=== PATIENT | female | born 1970 | race American Indian/Alaskan Native ===

== ENCOUNTER 2017-09-27 21:48 | Emergency (ER) | payer OTHER ==
[2017-09-27 21:56] VITALS: BP 123/75
[2017-09-27 23:23] LABS: Basophils % (Auto) 1.1 % (0.0-1.8); Eosinophils % (Auto) 0.9 % (0.0-4.3); Hematocrit 38.1 % (30.3-42.9); Hemoglobin 11.9 gm/dl (10.1-14.3); Mean Corpuscular HGB Conc 31 % (30-34); Mean Corpuscular Volume 80 fl (79-97); Platelet Count 357 K/mm3 (140-440); Red Blood Count 4.78 M/mm3 (3.65-5.03); Red Cell Distribution Width 16.8 % (13.2-15.2); White Blood Count 8.7 K/mm3 (4.5-11.0)
[2017-09-27 23:40] LABS: Mean Corpuscular Hemoglobin 25 pg (28-32)
[2017-09-28 00:04] LABS: Alanine Aminotransferase 9 units/L (7-56); Albumin 4.3 g/dL (3.9-5); Albumin/Globulin Ratio 1.3 %; Alkaline Phosphatase 76 units/L (35-129); Anion Gap 17 mmol/L; BUN/Creatinine Ratio 10; Blood Urea Nitrogen 8 mg/dL (7-17); Calcium 9.1 mg/dL (8.4-10.2); Carbon Dioxide 24 mmol/L (22-30); Chloride 97.2 mmol/L (98-107); Glucose 93 mg/dL (65-100); Lipase 28 units/L (13-60); Potassium 3.5 mmol/L (3.6-5.0); Sodium 135 mmol/L (137-145); Total Protein 7.5 g/dL (6.3-8.2)
== END 2017-09-28 05:20 | disposition left against medical advice (07) ==
LOC: ED 21:48
DX: R10.9 Unspecified abdominal pain (principal); Z53.21 Procedure and treatment not carried out due to patient leaving prior to being seen by health care provider
CPT/HCPCS: 36415; 80053; 83690; 85025

== ENCOUNTER 2017-10-06 00:02 | Emergency (ER) | payer OTHER ==
[2017-10-06] MEDS ORDERED: NACL 0.9% 1000 ML 1,000 ML IV ONE (02:06)
[2017-10-06 02:49] LABS: Basophils % (Auto) 1.8 % (0.0-1.8); Eosinophils % (Auto) 0.6 % (0.0-4.3); Hematocrit 36.1 % (30.3-42.9); Hemoglobin 11.8 gm/dl (10.1-14.3); Mean Corpuscular HGB Conc 33 % (30-34); Mean Corpuscular Volume 79 fl (79-97); Platelet Count 330 K/mm3 (140-440); Red Blood Count 4.57 M/mm3 (3.65-5.03); Red Cell Distribution Width 16.7 % (13.2-15.2); White Blood Count 5.9 K/mm3 (4.5-11.0)
[2017-10-06 03:05] LABS: Alanine Aminotransferase 11 units/L (7-56); Albumin 4.1 g/dL (3.9-5); Albumin/Globulin Ratio 1.4 %; Alkaline Phosphatase 58 units/L (35-129); Anion Gap 19 mmol/L; BUN/Creatinine Ratio 7; Blood Urea Nitrogen 5 mg/dL (7-17); Calcium 8.9 mg/dL (8.4-10.2); Carbon Dioxide 24 mmol/L (22-30); Chloride 100.3 mmol/L (98-107); Glucose 96 mg/dL (65-100); Lipase 21 units/L (13-60); Potassium 3.7 mmol/L (3.6-5.0); Sodium 140 mmol/L (137-145)
[2017-10-06 03:09] LABS: Mean Corpuscular Hemoglobin 26 pg (28-32)
[2017-10-06 03:11] LABS: INR 1.01 (0.87-1.13); Partial Thromboplastin Time 30.8 Sec. (24.2-36.6)
[2017-10-06] MEDS ORDERED: ZOFRAN IV ONE (07:19)
[2017-10-06] MEDS ORDERED: PEPCID IV ONE (07:19)
[2017-10-06] MEDS ORDERED: DILAUDID IV ONE (07:19)
--- NOTE | 2017-10-06 07:20 | Emergency Department Report ---
ED General Adult HPI - General Chief complaint: Abdominal Pain Stated complaint: ABD PAIN Time Seen by Provider: 10/06/17 07:13 Source: patient, RN notes reviewed Mode of arrival: Ambulatory Limitations: No Limitations - History of Present Illness Initial comments: This is a 47-year-old female who is previously unknown to this provider. She does not have a local primary care doctor or computer forwarding system markup clerk. She reports a past medical history of ulcer, colitis, Crohn's disease, abdominal surgery for bleeding ulcer, reports this was done a few years ago. Presents to the ER with a complaint of diffuse abdominal pain, thinks that she was coughing up blood, but she thinks that vomiting blood is also a possibility. She is not certain. Abdominal pain is sharp and all over. It increases with palpation. It decreases with rest. Patient denies bright red blood per rectum. She denies urinary symptoms. She was given hydromorphone in the ER, and this also improved her symptoms. -: Gradual Location: abdomen Quality: aching Consistency: constant Improves with: medication, rest Worsens with: movement Associated Symptoms: cough, loss of appetite, nausea/vomiting, weakness. denies : confusion, chest pain - Related Data Previous Rx's Medication Instructions Recorded Last Taken Type Acetaminophen [Tylenol Arthritis] 650 mg PO Q6HR PRN #30 tablet.er 10/06/17 Unknown Rx Dicyclomine [Bentyl] 10 mg PO QID PRN #20 capsule 10/06/17 Unknown Rx Famotidine [Pepcid] 20 mg PO QDAY #30 tablet 10/06/17 Unknown Rx Ondansetron [Zofran Odt] 4 mg PO Q8HR PRN #20 tab.rapdis 10/06/17 Unknown Rx Allergies Allergy/AdvReac Type Severity Reaction Status Date / Time No Known Allergies Allergy Verified 10/06/17 07:20 ED Review of Systems ROS: Stated complaint: ABD PAIN Other details as noted in HPI Constitutional: denies: fever Eyes: denies: eye discharge ENT: denies: epistaxis Respiratory: denies: cough Cardiovascular: denies: chest pain Gastrointestinal: abdominal pain, nausea, vomiting. denies: melena, hematochezia Genitourinary: denies: urgency Musculoskeletal: arthralgia Skin: denies: lesions Neurological: weakness ED Past Medical Hx - Past Medical History Additional medical history: ulcer,colitis,chrons - Surgical History Past Surgical History?: Yes Additional Surgical History: Abdominal surgery for Bleeding Ulcer - Social History Smoking Status: Current Every Day Smoker Substance Use Type: None - Medications Home Medications: Home Medications Medication Instructions Recorded Confirmed Last Taken Type Acetaminophen [Tylenol Arthritis] 650 mg PO Q6HR PRN #30 tablet.er 10/06/17 Unknown Rx Dicyclomine [Bentyl] 10 mg PO QID PRN #20 capsule 10/06/17 Unknown Rx Famotidine [Pepcid] 20 mg PO QDAY #30 tablet 10/06/17 Unknown Rx Ondansetron [Zofran Odt] 4 mg PO Q8HR PRN #20 tab.rapdis 10/06/17 Unknown Rx ED Physical Exam - General Limitations: No Limitations General appearance: alert, in no apparent distress - Head Head exam: Present: atraumatic, normocephalic - Eye Eye exam: Present: normal appearance, EOMI. Absent: nystagmus - ENT ENT exam: Present: normal exam, normal orophraynx, mucous membranes moist, normal external ear exam - Neck Neck exam: Present: normal inspection, full ROM - Respiratory Respiratory exam: Present: normal lung sounds bilaterally. Absent: respiratory distress - Cardiovascular Cardiovascular Exam: Present: regular rate, normal rhythm, normal heart sounds. Absent: systolic murmur, diastolic murmur, rubs, gallop - GI/Abdominal GI/Abdominal exam: Present: soft, tenderness, normal bowel sounds. Absent: distended, guarding, rebound, rigid, pulsatile mass - Extremities Exam Extremities exam: Present: normal inspection, full ROM, normal capillary refill. Absent: pedal edema, joint swelling, calf tenderness - Back Exam Back exam: Present: normal inspection, full ROM. Absent: paraspinal tenderness , vertebral tenderness - Neurological Exam Neurological exam: Present: alert, CN II-XII intact, other (Extraocular movements intact. Tongue midline. No facial droop. Facial sensation intact to light touch in the V1, V2, V3 distribution bilaterally. 5 and 5 strength in 4 extremities.. Sensation is intact to light touch in 4 extremities.). Absent : motor sensory deficit - Psychiatric Psychiatric exam: Present: normal affect, normal mood - Skin Skin exam: Present: warm, dry, intact, normal color. Absent: rash ED Course Vital Signs 10/06/17 10/06/17 10/06/17 01:57 03:48 04:00 Temperature 98.1 F Pulse Rate 76 68 65 Respiratory 26 H 15 Rate Blood Pressure 128/86 117/82 Blood Pressure [Left] O2 Sat by Pulse 98 99 99 Oximetry 10/06/17 10/06/17 10/06/17 04:15 04:31 04:45 Temperature Pulse Rate 64 78 69 Respiratory 17 30 H 17 Rate Blood Pressure 117/82 117/82 117/82 Blood Pressure [Left] O2 Sat by Pulse 99 98 97 Oximetry 10/06/17 10/06/17 10/06/17 05:01 05:15 05:31 Temperature Pulse Rate 78 73 68 Respiratory 18 17 19 Rate Blood Pressure 117/82 117/82 117/82 Blood Pressure [Left] O2 Sat by Pulse 97 97 100 Oximetry 10/06/17 10/06/17 10/06/17 05:44 05:45 06:01 Temperature 98.5 F Pulse Rate 66 85 Respiratory 20 20 Rate Blood Pressure 117/82 117/82 Blood Pressure [Left] O2 Sat by Pulse 99 99 Oximetry 10/06/17 10/06/17 10/06/17 06:15 06:31 06:45 Temperature Pulse Rate Respiratory Rate Blood Pressure 117/82 117/82 117/82 Blood Pressure [Left] O2 Sat by Pulse 99 99 98 Oximetry 10/06/17 10/06/17 10/06/17 07:01 07:15 07:31 Temperature Pulse Rate Respiratory Rate Blood Pressure 117/82 117/82 117/82 Blood Pressure [Left] O2 Sat by Pulse 99 99 100 Oximetry 10/06/17 10/06/17 08:39 09:33 Temperature 98.4 F Pulse Rate 80 Respiratory 20 18 Rate Blood Pressure Blood Pressure 112/66 [Left] O2 Sat by Pulse 99 Oximetry - Reevaluation(s) Reevaluation #1: 10/06/17 09:17 Vital signs have remained stable. Hemoglobin and hematocrit stable when compared to evaluation the end of August. Patient's had no active vomiting. CT scan demonstrates incidental findings and the following: LUNG BASES: Nonspecific distal esophageal wall prominence/thickening, not excluded for gastroesophageal reflux and/or hiatal hernia, amongst others. Patient can follow up with an outpatient computer forwarding system markup clerk. She will be discharged at this time. This local gastroenterology group, [facility] has a patient service hotline that patients can call to obtain a rapid appointment. There is no objective indication to be the patient to the hospital at this time. 10/06/17 09:22 ED Medical Decision Making - Lab Data Result diagrams: 10/06/17 02:29 10/06/17 02:29 Vital Signs 10/06/17 10/06/17 10/06/17 01:57 03:48 04:00 Temperature 98.1 F Pulse Rate 76 68 65 Respiratory 26 H 15 Rate Blood Pressure 128/86 117/82 O2 Sat by Pulse 98 99 99 Oximetry 10/06/17 10/06/17 10/06/17 04:15 04:31 04:45 Temperature Pulse Rate 64 78 69 Respiratory 17 30 H 17 Rate Blood Pressure 117/82 117/82 117/82 O2 Sat by Pulse 99 98 97 Oximetry 10/06/17 10/06/17 10/06/17 05:01 05:15 05:31 Temperature Pulse Rate 78 73 68 Respiratory 18 17 19 Rate Blood Pressure 117/82 117/82 117/82 O2 Sat by Pulse 97 97 100 Oximetry 10/06/17 10/06/17 10/06/17 05:44 05:45 06:01 Temperature 98.5 F Pulse Rate 66 85 Respiratory 20 20 Rate Blood Pressure 117/82 117/82 O2 Sat by Pulse 99 99 Oximetry 10/06/17 10/06/17 10/06/17 06:15 06:31 06:45 Temperature Pulse Rate Respiratory Rate Blood Pressure 117/82 117/82 117/82 O2 Sat by Pulse 99 99 98 Oximetry 10/06/17 10/06/17 10/06/17 07:01 07:15 07:31 Temperature Pulse Rate Respiratory Rate Blood Pressure 117/82 117/82 117/82 O2 Sat by Pulse 99 99 100 Oximetry Lab Results 10/06/17 10/06/17 10/06/17 Range/Units 02:29 02:29 02:29 WBC 5.9 (4.5-11.0) K/mm3 RBC 4.57 (3.65-5.03) M/mm3 Hgb 11.8 (10.1-14.3) gm/dl Hct 36.1 (30.3-42.9) % MCV 79 (79-97) fl MCH 26 L (28-32) pg MCHC 33 (30-34) % RDW 16.7 H (13.2-15.2) % Plt Count 330 (140-440) K/mm3 Lymph % (Auto) 42.0 H (13.4-35.0) % Lamar % (Auto) 7.0 (0.0-7.3) % Eos % (Auto) 0.6 (0.0-4.3) % Baso % (Auto) 1.8 (0.0-1.8) % Lymph # 2.5 (1.2-5.4) K/mm3 Lamar # 0.4 (0.0-0.8) K/mm3 Eos # 0.0 (0.0-0.4) K/mm3 Baso # 0.1 (0.0-0.1) K/mm3 Seg Neutrophils % 48.6 (40.0-70.0) % Seg Neutrophils # 2.8 (1.8-7.7) K/mm3 PT 13.8 (12.2-14.9) Sec. INR 1.01 (0.87-1.13) APTT 30.8 (24.2-36.6) Sec. Sodium 140 (137-145) mmol/L Potassium 3.7 (3.6-5.0) mmol/L Chloride 100.3 (98-107) mmol/L Carbon Dioxide 24 (22-30) mmol/L Anion Gap 19 mmol/L BUN 5 L (7-17) mg/dL Creatinine 0.7 (0.7-1.2) mg/dL Estimated GFR > 60 ml/min BUN/Creatinine Ratio 7 % Glucose 96 (65-100) mg/dL Calcium 8.9 (8.4-10.2) mg/dL Total Bilirubin 0.60 (0.1-1.2) mg/dL AST 19 (5-40) units/L ALT 11 (7-56) units/L Alkaline Phosphatase 58 (35-129) units/L Total Protein 7.0 (6.3-8.2) g/dL Albumin 4.1 (3.9-5) g/dL Albumin/Globulin Ratio 1.4 % Lipase 21 (13-60) units/L HCG, Qual (Negative) Blood Type Antibody Screen 10/06/17 10/06/17 Range/Units 02:29 02:29 WBC (4.5-11.0) K/mm3 RBC (3.65-5.03) M/mm3 Hgb (10.1-14.3) gm/dl Hct (30.3-42.9) % MCV (79-97) fl MCH (28-32) pg MCHC (30-34) % RDW (13.2-15.2) % Plt Count (140-440) K/mm3 Lymph % (Auto) (13.4-35.0) % Lamar % (Auto) (0.0-7.3) % Eos % (Auto) (0.0-4.3) % Baso % (Auto) (0.0-1.8) % Lymph # (1.2-5.4) K/mm3 Lamar # (0.0-0.8) K/mm3 Eos # (0.0-0.4) K/mm3 Baso # (0.0-0.1) K/mm3 Seg Neutrophils % (40.0-70.0) % Seg Neutrophils # (1.8-7.7) K/mm3 PT (12.2-14.9) Sec. INR (0.87-1.13) APTT (24.2-36.6) Sec. Sodium (137-145) mmol/L Potassium (3.6-5.0) mmol/L Chloride (98-107) mmol/L Carbon Dioxide (22-30) mmol/L Anion Gap mmol/L BUN (7-17) mg/dL Creatinine (0.7-1.2) mg/dL Estimated GFR ml/min BUN/Creatinine Ratio % Glucose (65-100) mg/dL Calcium (8.4-10.2) mg/dL Total Bilirubin (0.1-1.2) mg/dL AST (5-40) units/L ALT (7-56) units/L Alkaline Phosphatase (35-129) units/L Total Protein (6.3-8.2) g/dL Albumin (3.9-5) g/dL Albumin/Globulin Ratio % Lipase (13-60) units/L HCG, Qual Negative (Negative) Blood Type O POSITIVE Antibody Screen Negative - EKG Data When compared to previous EKG there are: previous EKG unavailable 10/06/17 08:42 Normal sinus, 69 bpm, borderline left ventricular voltage, abnormal EKG, poor R- wave amplitude in V2, not morphologically consistent with ST elevation myocardial infarction. - Radiology Data Radiology results: pending, report reviewed, image reviewed X-ray of the chest is negative Patient: RED FERMIN MR#: [id number] : 1970 Acct:[id number] Age/Sex: 47 / F ADM Date: 10/06/17 Loc: ED Attending Dr: Ordering Physician: AMALIA BEY MD Date of Service: 10/06/17 Procedure(s): CT abdomen pelvis w con Accession Number(s): [id number] cc: AMALIA BEY MD CT ABDOMEN AND PELVIS WITH CONTRAST INDICATION: Abdominal pain. Patient states history of Crohn's disease, perforated ulcer. COMPARISON: None similar. FINDINGS: Abdomen and pelvis CT performed following intravenous administration of 100 cc of Omnipaque 300. LUNG BASES: Nonspecific distal esophageal wall prominence/thickening, not excluded for gastroesophageal reflux and/or hiatal hernia, amongst others. ABDOMEN: Liver, spleen, gallbladder, pancreas, adrenals, abdominal aorta, IVC and kidneys within normal limits. No ascites or size significant adenopathy. Nonopacified GI tract evaluation limited, though grossly nonobstructive. Mild ascending and transverse colon stool. Small fat-containing umbilical hernia with a transverse neck of 0.9 cm. PELVIS: Uterus and the urinary bladder within normal limits. Approximately 1.9 cm left adnexal/ovarian follicular cyst and minimal deep right hemipelvic free fluid, axial image 272, series 2, likely physiologic. Bilateral external iliac lymph nodes measure up to 1.3 cm on the right, axial image 273. Mild rectosigmoid diverticulosis. Mild multilevel spinal degenerative changes. CONCLUSION: No acute CT abnormality with few incidental findings, as above. Thank you for the opportunity to participate in this patient's care. Transcribed By: RS Dictated By: CARLOS GARCIA MD Electronically Authenticated By: CARLOS GARCIA MD Signed Date/Time: 10/06/17 0848 - Medical Decision Making Differential diagnosis, including but not limited to: GERD, gastritis, Crohn's disease, pneumonia, bronchitis, bronchiectasis Assessment and plan: 47-year-old female with history of Crohn's disease, ulcer, no pulmonary most or DVT risk factors, low risk by well's criteria, perc negative, who reported a complaint of other vomiting blood or coughing up blood. She is afebrile with reassuring vital signs, x-ray of the chest is negative, patient has been observed in the ER for 7 hours thus far, neither myself or nursing staff have witness any coughing blood or vomiting blood. CT scan of the abdomen and pelvis is pending, patient given IV fluids, hydromorphone and Zofran. Critical care attestation.: If time is entered above; I have spent that time in minutes in the direct care of this critically ill patient, excluding procedure time. ED Disposition Clinical Impression: History of nausea and vomiting, Abdominal pain Disposition: TO HOME OR SELFCARE Is pt being admited?: No Does the pt Need Aspirin: No Condition: Stable Instructions: Ulcerative Colitis (ED) Additional Instructions: Take the nausea medication, pain medication as needed/directed. Avoid consumption of alcohol, ibuprofen, Motrin, Naprosyn, aspirin. Follow up with a computer forwarding system markup clerk within the next 7 days. [facility] is a local gastroenterology practice. This office also has a patient service hotline which the patient can contact to obtain a very rapid appointment: [phone] ([phone]) Please return to the ER right away with pain, worsening pain, migration of pain , fevers, chills, lethargy, irritability, projectile vomiting, change in mental status, confusion, inability to tolerate liquid feeds. Prescriptions: Acetaminophen [Tylenol Arthritis] 650 mg PO Q6HR PRN #30 tablet.er PRN Reason: Pain Dicyclomine [Bentyl] 10 mg PO QID PRN #20 capsule PRN Reason: Pain Famotidine [Pepcid] 20 mg PO QDAY #30 tablet Ondansetron [Zofran Odt] 4 mg PO Q8HR PRN #20 tab.rapdis PRN Reason: Nausea Referrals: PRIMARY CARE, [Primary Care Provider] - 3-5 Days [facility] [Provider Group] - 3-5 Days
[2017-10-06] MEDS ORDERED: NACL ONE (07:36)
--- NOTE | 2017-10-06 08:08 | XRay Report ---
PORTABLE CHEST INDICATION: Hematemesis versus hemoptysis. COMPARISON: None similar at this institution. FINDINGS: Portable, frontal chest radiograph demonstrates normal cardiomediastinal silhouette. Clear lungs. Intact bones. CONCLUSION: No acute disease. Thank you for the opportunity to participate in this patient's care.
--- NOTE | 2017-10-06 08:54 | Cat Scan Report ---
CT ABDOMEN AND PELVIS WITH CONTRAST INDICATION: Abdominal pain. Patient states history of Crohn's disease, perforated ulcer. COMPARISON: None similar. FINDINGS: Abdomen and pelvis CT performed following intravenous administration of 100 cc of Omnipaque 300. LUNG BASES: Nonspecific distal esophageal wall prominence/thickening, not excluded for gastroesophageal reflux and/or hiatal hernia, amongst others. ABDOMEN: Liver, spleen, gallbladder, pancreas, adrenals, abdominal aorta, IVC and kidneys within normal limits. No ascites or size significant adenopathy. Nonopacified GI tract evaluation limited, though grossly nonobstructive. Mild ascending and transverse colon stool. Small fat-containing umbilical hernia with a transverse neck of 0.9 cm. PELVIS: Uterus and the urinary bladder within normal limits. Approximately 1.9 cm left adnexal/ovarian follicular cyst and minimal deep right hemipelvic free fluid, axial image 272, series 2, likely physiologic. Bilateral external iliac lymph nodes measure up to 1.3 cm on the right, axial image 273. Mild rectosigmoid diverticulosis. Mild multilevel spinal degenerative changes. CONCLUSION: No acute CT abnormality with few incidental findings, as above. Thank you for the opportunity to participate in this patient's care.
[2017-10-06 09:34] VITALS: BP 112/66
== END 2017-10-06 10:10 | disposition home or self-care (01) ==
LOC: ED 00:02
DX: R10.84 Generalized abdominal pain (principal); R11.2 Nausea with vomiting, unspecified; F17.200 Nicotine dependence, unspecified, uncomplicated
CPT/HCPCS: 36415; 71010; 74177; 80053; 83690; 84703; 85025; 85610; 85730; 86850; 86900; 86901; 93005; 93010; 96361; 96374; 96375; 99285; J1170; J2405; J7030; Q9967